=== PATIENT | female | born 1965 | race Caucasian/White ===

== ENCOUNTER 2023-06-22 12:10 | Emergency (ER) | payer OTHER, SELFPAY ==
[2023-06-22 12:47] VITALS: BP 159/90; PULSE 114; RESP 16; TEMP 36.7; O2SAT 99
[2023-06-22 13:40] LABS: Basophils Percent Auto 0.5 % (0.2-1.2); Eosinophils Absolute Auto 0.1 K/mm3 (0-0.3); Eosinophils Percent Auto 0.9 % (0-4.4); Hematocrit 37.9 % (37.0-47.0); Immature Granulocyte Absolute 0.03 K/mm3 (0.00-0.031); Immature Granulocyte Percent A 0.5 % (0-0.5); Lymphocytes Absolute Auto 1.55 K/mm3 (0.9-3.2); Lymphocytes Percent Auto 23.4 % (18.3-44.2); Mean Corpuscular HGB Conc 31.7 g/dl (32-36); Mean Corpuscular Hemoglobin 28.3 pg (26-34); Mean Corpuscular Volume 89.4 fl (80-100); Mean Platelet Volume 8.6 fl (7.4-10.4); Monocytes Absolute Auto 0.4 K/mm3 (0.1-0.6); Monocytes Percent Auto 6.5 % (2.6-8.5); Neutrophils Absolute Auto 4.5 K/mm3 (1.3-6.7); Neutrophils Percent Auto 68.2 % (45.5-73.1); Platelet Count Result 430 k/mm3 (150-375); Red Blood Count 4.24 M/mm3 (4.2-5.4); White Blood Count 6.6 K/mm3 (4.5-10.0)
[2023-06-22 13:48] LABS: Alanine Aminotransferase 26 U/L (6-35); Albumin Level 4.9 g/dL (3.5-5.1); Alkaline Phosphatase 99 U/L (38-126); Anion Gap 11 mmol/L (8-16); Aspartate Amino Transferase 25 U/L (14-36); Bilirubin,Total 0.6 mg/dL (0.2-1.3); Blood Urea Nitrogen 11 mg/dL (7-17); Calcium 9.9 mg/dL (8.4-10.2); Carbon Dioxide 23 mmol/L (22-30); Chloride 106 mmol/L (98-107); Estimated CRCL calculation 90 ml/min; Estimated Glomerular Filt Rate > 60; Glucose 110 mg/dL (65-110); Potassium 3.8 mmol/L (3.4-5.0); Sodium 140 mmol/L (137-145)
[2023-06-22 14:04] LABS: Barbiturate Screen Urine Negative (Negative); Benzodiazepines Screen Urine Negative (Negative)
[2023-06-22 14:07] LABS: Appearance Urine Cloudy (Clear); Bacteria Urine Rare /hpf; Bilirubin Urine Negative (Negative); Blood Urine Negative (Negative); Color Urine Yellow (Yellow); Glucose Urine UA Negative (Negative); Ketones Urine Negative (Negative); Leukocyte Esterase Ur 2+ LEU/UL (Negative); Need Manual Microscopic Reviewed; Nitrate Urine Negative (Negative); Non Pathogenic Casts 0-2; Protein Urine Negative (Negative); Specific Grav Ur 1.015 (1.001-1.035); Squamous Epithelial Cell Urine Moderate /hpf (Few); Urobilinogen Urine 0.2 mg/dL (<2.0); WBC Urine 21-50 /hpf
[2023-06-22 14:15] LABS: Amphetamine Screen Urine Negative (Negative); Cannabinoid Screen Urine Positive (Negative); Cocaine Screen Urine Negative (Negative); Methadone Screen Urine Negative (Negative); Opiate Screen Urine Negative (Negative); Phencyclidine Screen Urine Negative (Negative)
[2023-06-22 14:18] LABS: SARS-CoV-2 RNA PCR Negative (Negative)
[2023-06-22 14:19] LABS: Add Urine Microscopic? YES
[2023-06-22 15:03] LABS: Ethanol < 10 mg/dL (<10)
--- NOTE | 2023-06-22 15:04 | ECG_ITS ---
Measurements Intervals [place] Rate: 77 P: 25 OK: 131 QRS: 72 QRSD: 94 T: 66 QT: 361 QTc: 409 Interpretive Statements SINUS RHYTHM NO PREVIOUS ECG AVAILABLE FOR COMPARISON Electronically Signed On 06-22-2023 16:09:02 [employer] REVIEWER by Katt Gomez M.D.
[2023-06-22] MEDS: cloNIDine HCL 0.1 MG TABLET 0.2 MG PO (15:21)
[2023-06-22] MEDS: ALPRAZolam (*CRX) 0.5 MG TABLET PO (15:21)
--- NOTE | 2023-06-22 16:40 | ED.PSYCH ---
HPI - Psych General Chief Complaint: Psychiatric Symptoms Stated Complaint: mental health issues, SI thoughts Time Seen by Provider: 06/22/23 14:23 Source: patient, RN notes reviewed and old records reviewed Mode of arrival: ambulatory Limitations: no limitations History of Present Illness HPI Narrative: This is a 57 year old female with history of bipolar who presents for evaluation of a mental health issues. PAtient states she was taking Xanax up until 6 months ago. She was fired by her doctor and she was no longer able to get prescription for Xanax. She has been taking up to [address] day in place of Xanax to help her sleep and with her anxiety. She reports she stopped taking Vicodin 3 days ago because she reports she knows it bad for her. She reports she has been unable to sleep since stopping the medication . She states she just wants to sleep and she is feeling suicidal because she is anxious and cant sleep. She denies alcohol use. Related Data Allergies Allergy/AdvReac Type Severity Reaction Status Date / Time No Known Allergies Allergy Verified 06/22/23 14:15 Review of Systems Constitutional: Constitutional: Denies weakness Cardiovascular: Cardiovascular: Denies syncope, Denies rapid heart rate, Denies irregular heart rhythm, Denies leg edema and Denies dyspnea Respiratory: Respiratory: Denies chest congestion, Denies hemoptysis, Denies excessive phlegm production and Denies dyspnea Gastrointestinal: Gastrointestinal: Denies abdominal pain, Denies hematochezia, Denies diarrhea and Denies vomiting Genitourinary: Genitourinary: Denies hematuria and Denies dysuria Musculoskeletal: Musculoskeletal: Denies joint swelling, Denies loss of height and Denies muscle weakness Neurologic: Denies syncope, Denies focal weakness and Denies weakness Psychiatric: Psychiatric: Reports anxiety PMFSH Past Medical History Medical History (Updated 06/22/23 @ 21:40 by Ellyn Alvarenga MD) Anxiety Bipolar 1 disorder Social History Social History (Updated 06/22/23 @ 16:45 by Ellyn Alvarenga MD) Alcohol intake: never Substance use type: marijuana, opiates and prescription drug Exam Const: General: no acute distress and alert Nutritional Appearance: well nourished Orientation/consciousness: patient oriented x3 HENMT: Head: normal to inspection Neck: Neck: normal visual inspection Chest: Chest palpation & inspection: normal inspection of the chest Resp: Effort & Inspection: normal respiratory effort Auscultation: clear to auscultation bilaterally Cardio: Rate: regular rate Rhythm: regular rhythm Heart sounds: no murmurs GI: GI Palp: Yes Soft to palpation, No Tenderness to palpation present (GI), No Guarding due to palpation present (GI) and No Rigid due to palpation Auscultation: normal bowel sounds Skin: General skin exam: normal color Rashes: no rashes Wounds: no wounds Neuro: General: patient oriented x3, moves all extremities and CN's II-XI intact bilaterally Extrem: General: normal to inspection Psych: Appearance: grossly normal Speech and movement: Normal speech and movement present Affect: Sad affect present Attitude: cooperative Thought process: not circumstantial, not confabulating, no flight of ideas, logical, not impoverished, perseverating, not tangential, No Word salad present (speech) and No Racing thoughts present Thought content: No Paranoid delusions present, No delusions and No Hallucination(s) present Insight: Good insight present (Psych) Judgement: Good judgement present (Psych) Course Reevaluation(s) Reevaluation #1: PAtient has been evaluated by [facility]. They spoke with patient and . They are providing patient with numbner to call psychiatrist tomorrow and to also get established with PCP tomorrow. They are performing safety plan with patient Date: 06/22/23 Time: 21:34 Vital Signs Vital signs: Vital Signs Temperature 98.0 F 06/22/23 12:47 P
[2023-06-22 17:05] LABS: Free T4 Free Thyroxine 1.31 ng/mL (0.78-2.19)
--- NOTE | 2023-06-22 19:12 | PC.NURSE ---
BSSR given to Min LUCERO
--- NOTE | 2023-06-22 19:26 | PC.NURSE ---
Attempted to call crisis for patient, no answer
--- NOTE | 2023-06-22 19:41 | PC.NURSE ---
Attempted to call crisis again, no answer. Voicemail left.
--- NOTE | 2023-06-22 19:59 | PC.NURSE ---
Called crisis again. No answer. Left voicemail.
[2023-06-22 21:42] VITALS: BP 147/86; PULSE 99; RESP 16; TEMP 36.6; O2SAT 97
[2023-06-25 04:53] LABS: Triiodothyronine T3 Free 2.6 pg/mL (2.3-4.2)
== END 2023-06-22 21:57 | disposition home or self-care (01) ==
PROVIDERS: Emergency Medicine; Emergency Provider General Practice
DX: G47.00 Insomnia, unspecified (principal); F31.9 Bipolar disorder, unspecified; F41.9 Anxiety disorder, unspecified; F12.90 Cannabis use, unspecified, uncomplicated; F11.90 Opioid use, unspecified, uncomplicated
CPT/HCPCS: 36415; 80053; 80307; 81001; 81025; 84439; 84443; 84481; 85025; 87086; 87088; 87635; 93005; 99284; A9270